=== PATIENT | female | born 1990 | race Hispanic/Latino ===

== ENCOUNTER 2018-04-13 06:06 | Observation (INO) | payer MEDICAID, OTHER ==
[~2018-04-13] VITALS: Ht 154.9 cm; Wt 68.5 kg
[2018-04-13 07:13] LABS: APPEARANCE,URINE CLEAR (CLEAR); BILIRUBIN,URINE NEGATIVE (NEGATIVE); COLOR,URINE YELLOW (YELLOW); GLUCOSE, URINE (UA) NEGATIVE (NEGATIVE); KETONES,URINE NEGATIVE (NEGATIVE); LEUKOCYTE ESTERASE ,URINE NEGATIVE (NEGATIVE); NITRATE,URINE NEGATIVE (NEGATIVE); OCCULT BLOOD,URINE NEGATIVE (NEGATIVE); PROTEIN,URINE NEGATIVE (NEGATIVE); UROBILINOGEN,URINE 0.2 mg/dL (0.2-1.0)
[2018-04-13] MEDS ORDERED: LACTATED RINGERS 1000ML IV SCH (12:15)
[2018-04-14] MEDS ORDERED: LIDOCAINE 2%-EPI 1:200,000 20 ML VIAL IJ ONE (02:44)
== END 2018-04-13 12:15 | disposition home or self-care (01) ==
LOC: EDH 06:06 → LDH 06:07
PROVIDERS: ADMIT Obstetrics & Gynecology; ATTEND Obstetrics & Gynecology
DX: O26.853 Spotting complicating pregnancy, third trimester (principal); Z3A.36 36 weeks gestation of pregnancy
CPT/HCPCS: 81003; 96360; 96361; G0378; J3490; J7120

== ENCOUNTER 2018-04-14 01:41 | Inpatient (IN) | payer OTHER ==
[~2018-04-14] VITALS: Ht 154.9 cm; Wt 68.5 kg
[2018-04-14] MEDS ORDERED: LACTATED RINGERS 1000ML 1,000 ML IV PRN (02:18)
[2018-04-14] MEDS ORDERED: CLINDAMYCIN 600 MG/D5% WATER 50 ML IV ONE (02:26)
[2018-04-14] MEDS ORDERED: LACTATED RINGERS 500 ML 500 ML IV PRN (02:30)
[2018-04-14] MEDS ORDERED: NALOXONE HCL 0.4 MG/1 ML ML IV PRN (02:30)
[2018-04-14] MEDS ORDERED: ROPIVACAINE 0.2%200ML EPIDURAL 200 ML EP SCH (02:30)
[2018-04-14] MEDS ORDERED: OXYTOCIN-LR 20 UNITS/1000 ML 1,000 ML IV SCH ×2 (02:30→04:00)
[2018-04-14] MEDS ORDERED: EPHEDRINE SULFATE 50 MG/ML AMPULE IVP PRN (02:30)
[2018-04-14] MEDS ORDERED: LACTATED RINGERS 1000ML 1,000 ML IV ONE ×2 (02:37→03:17)
[2018-04-14 02:40] LABS: HEMATOCRIT 33.8 % (36-48); MEAN CORPUSCULAR HEMOGLOBIN 26.3 pg (27.0-33.0); MEAN CORPUSCULAR HGB CONC 32.2 g/dL (32.0-36.0); MEAN CORPUSCULAR VOLUME 81.8 fL (79-99); PLATELET COUNT (AUTO) 282 K/uL (130-400); RED BLOOD CELL COUNT(AUTO) 4.13 MIL/uL (4.00-5.50); RED CELL DISTRIBUTION WIDTH 14.2 % (11.0-15.5); WHITE BLOOD COUNT (AUTO) 9.1 K/uL (4.8-10.8)
[2018-04-14 02:40] LABS: BACTERIA,URINE None Seen /HPF (None Seen); MUCUS,URINE Moderate LPF (None Seen); RBC,URINE 0-1 /HPF (0-1); SQUAMOUS EPITHELIAL CELL,UR Moderate /HPF (0-2); WBC,URINE None Seen /HPF (0-1)
[2018-04-14 02:41] LABS: APPEARANCE,URINE Cloudy (CLEAR); BILIRUBIN,URINE Negative (NEGATIVE); COLOR,URINE Yellow (YELLOW); GLUCOSE, URINE (UA) Negative (NEGATIVE); KETONES,URINE Negative (NEGATIVE); LEUKOCYTE ESTERASE ,URINE Negative (NEGATIVE); NITRATE,URINE Negative (NEGATIVE); OCCULT BLOOD,URINE Moderate (NEGATIVE); PH,URINE 7.5 (5.0-8.0); PROTEIN,URINE Trace (NEGATIVE)
[2018-04-14] MEDS ORDERED: OXYTOCIN 10 USP UNITS/ML ONE (03:17)
[2018-04-14] MEDS ORDERED: LIDOCAINE HCL 1% 20 ML VIAL ONE (03:20)
[2018-04-14] MEDS ORDERED: BENZOCAINE/LANOLIN/ALOE VERA 60 ML AEROSOL TP PRN (04:00)
[2018-04-14] MEDS ORDERED: ACETAMINOPHEN-CODEINE 300/30MG TAB PO PRN (04:00)
[2018-04-14] MEDS ORDERED: WITCH HAZEL 1 PAD TP PRN (04:00)
[2018-04-14] MEDS ORDERED: ACETAMINOPHEN 325 MG TAB PO PRN (04:00)
[2018-04-14] MEDS ORDERED: MEASLES/MUMPS/RUBELLA VACCINE, LIVE 0.5 ML/VIAL SQ PRN (04:00)
[2018-04-14] MEDS ORDERED: DIPH,PERTUSS(ACELL),TET VAC/PF 0.5 ML VIAL IM PRN (04:00)
[2018-04-14] MEDS ORDERED: LANOLIN 30GM OINTMENT TP PRN (04:00)
[2018-04-14 05:52] VITALS: BP 111/70
[2018-04-14] MEDS ORDERED: OXYTOCIN 10 USP UNITS/ML 20 UNIT in LACTATED RINGERS 1000ML 1,000 ML IV SCH (07:00)
--- NOTE | 2018-04-14 07:40 | NUR ---
PATIENT STABLE AND C/O PAIN OF 4 AND WAS MEDICATED WITH MOTRIN. BONDING WELL WITH BABY AND STATES BABY AND TOLERATING ACTIVITY WELL. PATIENT HAS IV #2 UP AND INFUSING WELL. PATIENT UP AT THIS TIME AND WAS ASSISTED BY MERLE VELASCO AND WAS ABLE TO VOID 350CC.
[2018-04-14 07:58] VITALS: BP 104/56
[2018-04-14] MEDS: DOCUSATE SODIUM 100 MG CAP PO SCH ×2 (08:06→21:59)
[2018-04-14] MEDS: IBUPROFEN 800 MG TAB PO PRN ×3 (08:07→22:00)
[2018-04-14] MEDS ORDERED: CLINDAMYCIN 600 MG/D5% WATER 50 ML IV SCH (09:00)
[2018-04-14 11:08] VITALS: BP 97/50
--- NOTE | 2018-04-14 13:00 | NUR ---
PATIENT SEEN BY DR. WRIGHT AND INFORMED PATIENT OF DISCHARGE IN A.M. ONCE BABY IS DISCHARGED
[2018-04-14 15:52] VITALS: BP 115/63
--- NOTE | 2018-04-14 16:00 | NUR ---
PIV REMOVED AND IV SITE WNL. PATIENT DENIES PAIN AND DID NOT WISH TO GET MOTRIN AT THIS TIME.
--- NOTE | 2018-04-14 19:10 | NUR ---
REPORT GIVEN TO YOVANNY BETANCOURT AND PATIENT CARE TRANSFERED AT THIS TIME.
[2018-04-14 19:36] VITALS: BP 110/67
[2018-04-14 23:23] VITALS: BP 106/63
[2018-04-15 03:15] VITALS: BP 95/53
[2018-04-15 07:02] LABS: HEMATOCRIT 28.4 % (36-48); MEAN CORPUSCULAR HEMOGLOBIN 26.5 pg (27.0-33.0); MEAN CORPUSCULAR HGB CONC 32.3 g/dL (32.0-36.0); PLATELET COUNT (AUTO) 224 K/uL (130-400); RED BLOOD CELL COUNT(AUTO) 3.47 MIL/uL (4.00-5.50); RED CELL DISTRIBUTION WIDTH 14.5 % (11.0-15.5); WHITE BLOOD COUNT (AUTO) 7.3 K/uL (4.8-10.8)
[2018-04-15 07:24] VITALS: BP 120/76
[2018-04-15 07:25] LABS: HEPATITIS Bs ANTIGEN SCREEN P Negative (Negative)
--- NOTE | 2018-04-15 07:50 | NUR ---
VERBALIZES HAVING A BM ON PREVIOUS NIGHT AND DENIES ANY PAIN AT THIS TIME. INFORMED PATIENT SHE COULD HAVE MOTRIN FOR GENERALIZED BODYACHES FROM DELIVERY AND AGREED TO TAKE SOME MOTRIN WITH A.M. MEDS.
[2018-04-15] MEDS: DOCUSATE SODIUM 100 MG CAP PO SCH ×2 (09:15→20:18)
[2018-04-15] MEDS: IBUPROFEN 800 MG TAB PO PRN ×2 (09:16→18:05)
--- NOTE | 2018-04-15 10:45 | NUR ---
DR. MULLINS ROUNDED AND PATIENT INDICATED BABY NOT GOING HOME DUE TO UNKNOWN GBS AND PATIENT WANTED TO STAY TO [facility] . PATIENT WAS INFORMED SHE COULD STAY UNTIL A.M. AND THEN BE DISCHARGED TO HOME.
[2018-04-15 11:25] VITALS: BP 109/70
--- NOTE | 2018-04-15 12:00 | NUR ---
DENIES HAVING ANY PAIN AND IS SUCCESSFULLY BE ABLE TO BREASTFEED BABY. PATIENT AND BABY STABLE.
[2018-04-15 15:39] VITALS: BP 107/60
--- NOTE | 2018-04-15 16:00 | NUR ---
PAIN MANAGEMENT ASSESSMENT DONE AND PATIENT DENIES ANY PAIN. DENIES ANY ACHES OR NEEDING MOTRIN.
[2018-04-15 19:35] VITALS: BP 111/76
[2018-04-15 23:26] VITALS: BP 105/63
--- NOTE | 2018-04-15 23:41 | NUR ---
report given to Suzy Klein rn, for continuation of care.
[2018-04-16 03:17] VITALS: BP 90/56
[2018-04-16] MEDS: IBUPROFEN 800 MG TAB PO PRN (06:14)
[2018-04-16 07:26] VITALS: BP 111/65
--- NOTE | 2018-04-16 07:30 | NUR ---
PATIENT IS STABLE AND STATES HAVING PAIN OF 2 ON SCALE OF 0 TO 10. WAS MEDICATED WITH MOTRIN AT 0614 AND WILL MEDICATE WITH PLAIN TYLENOL.
[2018-04-16] MEDS: DOCUSATE SODIUM 100 MG CAP PO SCH (08:36)
--- NOTE | 2018-04-16 10:15 | NUR ---
DR. COOPER ROUNDED AND DISCHARGED PATIENT TO HOME. PATIENT STABLE.
--- NOTE | 2018-04-16 11:15 | NUR ---
PATIENT WAS GIVEN DISCHARGE INSTRUCTIONS AND SCRIPT GIVEN FOR MOTRIN. PATIENT DENIES PAIN AT THIS TIME AND VERBALIZED UNDERSTANDING INSTRUCTIONS GIVEN.
--- NOTE | 2018-04-16 11:15 | NUR ---
PATIENT WAS TAKEN VIA W/C TO [facility]ABY IN [place]. PATIENT IS STABLE AND DENIES PAIN AND WAS DISCHARGED TO [facility]. Addendum: 04/16/18 at 1429 by GRACE MIRANDA RN PATIENT WAS TAKEN TO [facility] AT 1305 AND WAS GIVEN INSTRUCTIONS AT 1115. BABY WAS DISCHARGED AT 1300.
[2018-04-16 11:22] VITALS: BP 112/71
== END 2018-04-16 13:05 | disposition home or self-care (01) | DRG 807 ==
LOC: EDH 01:41 → LDH 01:42 → OBSVTOIN 01:42 → WSH 05:43
PROVIDERS: ADMIT Obstetrics & Gynecology; ATTEND Obstetrics & Gynecology
PROC: 10E0XZZ Delivery of Products of Conception, External Approach (ICD-10-PCS; principal; 2018-04-14)
PROC: 10907ZC Drainage of Amniotic Fluid, Therapeutic from Products of Conception, Via Natural or Artificial Opening (ICD-10-PCS; 2018-04-14)
PROC: 0HQ9XZZ Repair Perineum Skin, External Approach (ICD-10-PCS; 2018-04-14)
PROC: 3E0234Z Introduction of Serum, Toxoid and Vaccine into Muscle, Percutaneous Approach (ICD-10-PCS; 2018-04-14)
PROC: 3E0134Z Introduction of Serum, Toxoid and Vaccine into Subcutaneous Tissue, Percutaneous Approach (ICD-10-PCS; 2018-04-14)
DX: O71.5 Other obstetric injury to pelvic organs (principal); Z37.0 Single live birth; O70.0 First degree perineal laceration during delivery; Z3A.37 37 weeks gestation of pregnancy; Z23 Encounter for immunization
CPT/HCPCS: 36415; 81001; 85027; 86592; 86850; 86900; 86901; 87340; A4351; G0378; J2590; J3490; J7120

== ENCOUNTER 2019-06-28 10:07 | Emergency (ER) | payer MEDICAID, OTHER ==
[2019-06-28 11:09] LABS: APPEARANCE,URINE Clear (CLEAR); BILIRUBIN,URINE Negative (NEGATIVE); COLOR,URINE Yellow (YELLOW); GLUCOSE, URINE (UA) Negative (NEGATIVE); KETONES,URINE Negative (NEGATIVE); LEUKOCYTE ESTERASE ,URINE Trace (NEGATIVE); NITRATE,URINE Negative (NEGATIVE); OCCULT BLOOD,URINE Negative (NEGATIVE); PH,URINE 5.5 (5.0-8.0); PROTEIN,URINE Negative (NEGATIVE)
[2019-06-28 11:25] LABS: HCG,QUAL RESULT NEGATIVE (NEGATIVE)
[2019-06-28 11:27] LABS: BACTERIA,URINE Rare /HPF (None Seen); RBC,URINE 0-1 /HPF (0-1); SQUAMOUS EPITHELIAL CELL,UR Rare /HPF (0-2); WBC,URINE 0-1 /HPF (0-1)
[2019-06-28] MEDS ORDERED: KETOROLAC TROMETHAMINE 30MG/ML ONE (11:27)
== END 2019-06-28 11:40 | disposition home or self-care (01) ==
LOC: EDH 10:07
DX: M54.5 Low back pain (principal); Z88.0 Allergy status to penicillin
CPT/HCPCS: 81001; 81025; 96372; 99283; J1885

== ENCOUNTER 2024-03-25 10:07 | Inpatient (IN) | payer BC, OTHER ==
[~2024-03-25] VITALS: Ht 154.9 cm; Wt 58.2 kg
[2024-03-25 10:28] LABS: BASOPHILS # (AUTO) 0.01 K/uL (0.00-0.20); BASOPHILS % (AUTO) 0.1 % (0.0-5.0); EOSINOPHILS # (AUTO) 0.04 K/uL (0.00-0.70); EOSINOPHILS % (AUTO) 0.5 % (0.0-8.0); HEMATOCRIT 39.3 % (36-48); IMMATURE GRANULOCYTE ABSOLUTE 0.04 K/uL (0-1); LYMPHOCYTES # (AUTO) 1.5 K/uL (1.0-4.8); LYMPHOCYTES % (AUTO) 17.3 % (21.0-51.0); MEAN CORPUSCULAR HEMOGLOBIN 29.9 pg (27.0-33.0); MEAN CORPUSCULAR HGB CONC 34.1 g/dL (32.0-36.0); MEAN CORPUSCULAR VOLUME 87.7 fL (79-99); MONOCYTES # (AUTO) 0.4 K/uL (0.1-1.0); MONOCYTES % (AUTO) 4.2 % (3.0-13.0); NEUTROPHILS # (AUTO) 6.5 K/uL (1.8-7.7); NEUTROPHILS % (AUTO) 77.4 % (40.0-77.0); PLATELET COUNT (AUTO) 305 K/uL (130-400); RED BLOOD CELL COUNT(AUTO) 4.48 MIL/uL (4.00-5.50); RED CELL DISTRIBUTION WIDTH 12.3 % (11.0-15.5); WHITE BLOOD COUNT (AUTO) 8.4 K/uL (4.8-10.8)
[2024-03-25 10:39] LABS: CREATININE 0.6 mg/dL (0.5-1.0); POTASSIUM 4.4 mmol/L (3.5-5.1)
[2024-03-25 10:43] LABS: BILIRUBIN,TOTAL 0.5 mg/dL (0.2-1.0); TOTAL PROTEIN, SERUM 7.5 g/dL (6.0-8.3)
[2024-03-25 10:55] LABS: HCG,QUALITATIVE URINE NEGATIVE (NEGATIVE)
[2024-03-25 11:00] LABS: APPEARANCE,URINE CLEAR (CLEAR); BILIRUBIN,URINE NEGATIVE (NEGATIVE); COLOR,URINE COLORLESS (YELLOW); GLUCOSE, URINE (UA) NEGATIVE (NEGATIVE); KETONES,URINE NEGATIVE (NEGATIVE); LEUKOCYTE ESTERASE ,URINE NEGATIVE Leu/uL (NEGATIVE); NITRATE,URINE NEGATIVE (NEGATIVE); OCCULT BLOOD,URINE NEGATIVE (NEGATIVE); PH,URINE 7.5 (5.0-8.0); PROTEIN,URINE NEGATIVE (NEGATIVE); RBC,URINE 0-1 /HPF (0-1); SQUAMOUS EPITHELIAL CELL,UR RARE /HPF (0-2); UROBILINOGEN,URINE 0.2 mg/dL (0.2-1.0); WBC,URINE 0-1 /HPF (0-1)
[2024-03-25] MEDS ORDERED: IOHEXOL-350 75 ML VIAL IV ONE (11:44)
--- NOTE | 2024-03-25 12:35 | HMCIMG ---
CT ABDOMEN/PELVIS W/CONTRAST HISTORY: RUQ pain TECHNIQUE: CT ABDOMEN/PELVIS W/CONTRAST 75 cc Omnipaque contrast was used. Oral contrast was not given. Coronal and sagittal reformats were obtained. CT was performed with one or more of the following dose reduction techniques: Automated exposure control, adjustment of the mA and/or kV according to the patient's size, or use of the iterative reconstruction technique. Comparison: None. FINDINGS: No pulmonary consolidation or pleural effusion is seen. Unremarkable liver The spleen, pancreas, and adrenal glands are within normal limits. No hydronephrosis. The urinary bladder is partially distended. Retroverted retroflexed uterus with IUD in place. Fluid-filled loops of small bowel suggesting enteritis in the proper clinical setting. No bowel obstruction is seen. Mildly distended gallbladder with gallstones and questionable wall thickening. Correlate with ultrasound. Appendix is normal in caliber. Visualized aorta is normal in caliber. No acute osseous findings. IMPRESSION: 1. Fluid-filled loops of small bowel suggesting enteritis in the proper clinical setting. No bowel obstruction is seen. 2. Mildly distended gallbladder with gallstones and questionable wall thickening. Correlate with ultrasound.
--- NOTE | 2024-03-25 14:28 | HMCIMG ---
US ABDOMINAL RUQ\E\LTD HISTORY: RUQ Pain TECHNIQUE: US ABDOMINAL RUQ\E\LTD. FINDINGS: LIVER: The liver demonstrates normal echogenicity without focal lesions. GALLBLADDER: Mildly distended gallbladder with gallstones, trace of pericholecystic fluid and mild gallbladder wall thickening which may may represent acute cholecystitis in the proper clinical setting. CBD: Measures up to 0.3cm. PANCREAS: The visualized pancreas appears within normal limits. RIGHT KIDNEY: measures 9.8cm in length. No hydronephrosis or calculi. IMPRESSION: Mildly distended gallbladder with gallstones, trace of pericholecystic fluid and mild gallbladder wall thickening which may may represent acute cholecystitis in the proper clinical setting.
--- NOTE | 2024-03-25 14:42 | ERN ---
General Chief Complaint: Abdominal Pain Stated Complaint: EPIGASTRIC PAIN X1 WEEK Time Seen by MD: 10:12 Time Seen by Midlevel: 10:12 Source: patient History of Present Illness Initial Comments 33-year-old female who presents to the ED due to abdominal pain off and on for one week. States she is unable to eat due to the increasing pain. Patient reports nausea, chills, diarrhea, but denies any vomiting or further associated symptoms. Reports history of gallstones but denies any other significant past medical history. Allergies: Coded Allergies: Penicillins (Verified Allergy, 01/08/12) Home Meds No Active Prescriptions or Reported Meds Past Medical History Past Medical History: No Pertinent History Past Surgical History: None ROS Dictation Constitutional: Positive for chills Negative for fever, and weight loss Eyes: Negative for injury, pain,redness, and discharge ENT: Negative for injury,pain or swelling Cardiovascular: Negative for chest pain, palpitations, and edema Respiratory: Negative for shortness of breath, cough, and wheezing, Abdomen/GI: Positive for nausea, abdominal pain, diarrhea Negative for vomiting, and constipation Back: Negative for injury and pain : Negative for painful urination, bleeding or discharge MS/Extremity: Negative for injury and deformity Skin: Negative for rash, and discoloration Neuro: Negative for headache, weakness, numbness, tingling, and seizure Psych: Negative for suicide ideation, homicidal ideation, and hallucinations Physical Exam Physical Exam Dictation General: awake, alert, no acute distress Head/Face: Normocephalic, atraumatic Eyes: normal conjunctiva ENT: oral cavity clear, oral mucosa moist Cardiovascular: RRR, normal S1/S2 Respiratory: CTAB, no respiratory distress, no rales or wheezes Abdomen: Soft, right upper quadrant tenderness, non-distended, no guarding or rebound. Skin: Warm, dry, normal turgor, no rash MS/Extremity: Pulses equal, no cyanosis, neurovascular intact, FROM Neuro: COAx4, GCS 15, normal gait Psych: Normal behavior, mood, and affect normal Results Laboratory and Microbiology Lab and Micro Result Laboratory Tests Test 03/25/24 10:22 03/25/24 10:25 White Blood Count 8.4 K/uL (4.8-10.8) Red Blood Count 4.48 MIL/uL (4.00-5.50) Hemoglobin 13.4 g/dL (12.0-16.0) Hematocrit 39.3 % (36-48) Mean Corpuscular Volume 87.7 fL (79-99) Mean Corpuscular Hemoglobin 29.9 pg (27.0-33.0) Mean Corpuscular Hemoglobin Concent 34.1 g/dL (32.0-36.0) Red Cell Distribution Width 12.3 % (11.0-15.5) Platelet Count 305 K/uL (130-400) Mean Platelet Volume 9.9 fL (7.5-10.5) Immature Granulocyte % (Auto) 0.5 % (0-1) Neutrophils (%) (Auto) 77.4 % (40.0-77.0) H Lymphocytes (%) (Auto) 17.3 % (21.0-51.0) L Monocytes (%) (Auto) 4.2 % (3.0-13.0) Eosinophils (%) (Auto) 0.5 % (0.0-8.0) Basophils (%) (Auto) 0.1 % (0.0-5.0) Neutrophils # (Auto) 6.5 K/uL (1.8-7.7) Lymphocytes # (Auto) 1.5 K/uL (1.0-4.8) Monocytes # (Auto) 0.4 K/uL (0.1-1.0) Eosinophils # (Auto) 0.04 K/uL (0.00-0.70) Basophils # (Auto) 0.01 K/uL (0.00-0.20) Absolute Immature Granulocyte (auto 0.04 K/uL (0-1) Nucleated Red Blood Cells 0.0 % (0.0-0.19) Sodium Level 137 mmol/L (136-145) Potassium Level 4.4 mmol/L (3.5-5.1) Chloride Level 104 mmol/L (101-111) Carbon Dioxide Level 29 mmol/L (21-32) Blood Urea Nitrogen 8 mg/dL (7-18) Creatinine 0.6 mg/dL (0.5-1.0) Glomerular Filtration Rate Calc 121 mL/min (>90) Random Glucose 95 mg/dL (70-105) Total Calcium 9.0 mg/dL (8.5-10.1) Total Bilirubin 0.5 mg/dL (0.2-1.0) Aspartate Amino Transf (AST/SGOT) 15 U/L (10-37) Alanine Aminotransferase (ALT/SGPT) 24 U/L (12-78) Alkaline Phosphatase 88 U/L (50-136) Total Protein 7.5 g/dL (6.0-8.3) Albumin 4.0 g/dL (3.5-5.0) Lipase 39 U/L (16-77) Urine Color COLORLESS (YELLOW) Urine Appearance CLEAR (CLEAR) Urine pH 7.5 (5.0-8.0) Urine Specific [place] 1.010 (1.001-1.031) Urine Protein NEGATIVE mg/dL (NEGATIVE) Urine Glucose (UA) NEGATIVE mg/dL (NEGATIVE) Urine Ketones NEGATIVE mg/dL (NEGATIVE) Urine Occult Blood NEGATIVE (NEGATIVE) Urine Nitrate NEGATIVE (NEGATIVE) Urine Bilirubin NEGATIVE mg/dL (NEGATIVE) Urine Urobilinogen 0.2 mg/dL (0.2-1.0) Urine Leukocyte Esterase NEGATIVE Sudeep/uL Urine RBC 0-1 /HPF (0-1) Urine WBC 0-1 /HPF (0-1) Urine Squamous Epithelial Cells RARE /HPF (0-2) Urine Bacteria None /HPF (None Seen) Urine HCG, Qualitative NEGATIVE (NEGATIVE) Labs Reviewed?: Yes EKG/XRAY/US/CT/MRI Ultrasound Comment REASON: RUQ Pain ORDERING PHYSICIAN: CAIO DOWD PROCEDURE: ABDRUQLTD - US ABDOMINAL RUQ\LTD US ABDOMINAL RUQ\E\LTD HISTORY: RUQ Pain TECHNIQUE: US ABDOMINAL RUQ\E\LTD. FINDINGS: LIVER: The liver demonstrates normal echogenicity without focal lesions. GALLBLADDER: Mildly distended gallbladder with gallstones, trace of pericholecystic fluid and mild gallbladder wall thickening which may may represent acute cholecystitis in the proper clinical setting. CBD: Measures up to 0.3cm. PANCREAS: The visualized pancreas appears within normal limits. RIGHT KIDNEY: measures 9.8cm in length. No hydronephrosis or calculi. IMPRESSION: Mildly distended gallbladder with gallstones, trace of pericholecystic fluid and mild gallbladder wall thickening which may may represent acute cholecystitis in the proper clinical setting. CT Scan Comment REASON: RUQ pain ORDERING PHYSICIAN: CAIO DOWD PROCEDURE: ABD PEL W - CT ABDOMEN/PELVIS W/CONTRAST CT ABDOMEN/PELVIS W/CONTRAST HISTORY: RUQ pain TECHNIQUE: CT ABDOMEN/PELVIS W/CONTRAST 75 cc Omnipaque contrast was used. Oral contrast was not given. Coronal and sagittal reformats were obtained. CT was performed with one or more of the following dose reduction techniques: Automated exposure control, adjustment of the mA and/or kV according to the patient's size, or use of the iterative reconstruction technique. Comparison: None. FINDINGS: No pulmonary consolidation or pleural effusion is seen. Unremarkable liver The spleen, pancreas, and adrenal glands are within normal limits. No hydronephrosis. The urinary bladder is partially distended. Retroverted retroflexed uterus with IUD in place. Fluid-filled loops of small bowel suggesting enteritis in the proper clinical setting. No bowel obstruction is seen. Mildly distended gallbladder with gallstones and questionable wall thickening. Correlate with ultrasound. Appendix is normal in caliber. Visualized aorta is normal in caliber. No acute osseous findings. IMPRESSION: 1. Fluid-filled loops of small bowel suggesting enteritis in the proper clinical setting. No bowel obstruction is seen. 2. Mildly distended gallbladder with gallstones and questionable wall thickening. Correlate with ultrasound. MDM MDM: Differential diagnosis: Cholelithiasis, cholecystitis, biliary colic Rationale: 33-year-old female who presents to the ED due to abdominal pain off and on for one week. States she is unable to eat due to the increasing pain. Patient reports nausea, chills, diarrhea, but denies any vomiting or further associated symptoms. Reports history of gallstones but denies any other significant past medical history. Labs obtained are nonspecific. CT abdomen and pelvis indicates fluid-filled loops in the small bowel suggesting enteritis, mildly distended gallbladder with gallstones. Right upper quadrant ultrasound indicates mildly distended gallbladder with gallstones, trace of pericholecystic fluid and gallbladder wall thickening. Case discussed with general surgeon Dr. Bailey who stated he would evaluate the patient. Patient admitted to hospitalist who accepted admission. Patient declined any pain medication while in the ED. Patient was educated on findings, diagnosis, and admission. Patient verbalized understanding and agreed with admission. Previous outside records reviewed: Old ER visits. Risk of complication and/or morbidity or mortality of patient management: None Medications-Per medication reconciliation Need for hospitalization: Patient does meet criteria for hospitalization. Need for emergency major/minor surgery: No There are no social concerns with this patient. Prescription drug management Prescriptions will include symptomatic care Patient's prior external medical records from other ER visits were reviewed by me as indicated. Prior testing and results from previous visits were reviewed. Prior tests were taken into account with medical decision making and resource utilization, independent historian/historians were used to obtain complete medical history. I independently interpreted the test that were performed, results were reviewed by me and considered findings on radiology if ordered. Medical management and examination interpretation discussions were had by me with other qualified healthcare professionals as indicated for the patient's care. ED Course Orders Procedure Category Date Status Time Cbc With Differential LAB 03/25/24 Complete 10:12 Comprehensive LAB 03/25/24 Complete Metabolic Panel 10:12 Urinalysis LAB 03/25/24 Complete W/Microscopic 10:12 ,Urine Test LAB 03/25/24 Complete 10:12 Lipase LAB 03/25/24 Complete 10:12 Ct Abdomen/Pelvis CT 03/25/24 Resulted W/Contrast 11:11 Iohexol (Omnipaque) PHA 03/25/24 Complete 11:44 Us Abdominal Ruq\Ltd US 03/25/24 Resulted 12:46 Levofloxacin 500 PHA 03/25/24 Complete Mg/D5w 100 Ml 14:02 Current Medications Medications (Trade) Dose Ordered Sig/Amando Route PRN Reason Start Time Stop Time Status Last Admin Dose Admin Iohexol (Omnipaque) 75 ml STK-MED ONCE IV 03/25/24 11:44 03/25/24 11:45 DC Levofloxacin/ Dextrose 100 ml @ 100 mls/hr Q24H STAT IV 03/25/24 14:02 03/25/24 15:01 DC 03/25/24 15:34 Vital Signs Date Time Temp Pulse Resp B/P (MAP) Pulse Ox O2 Delivery O2 Flow Rate FiO2 03/25/24 13:00 98.2 62 18 125/70 99 Room Air* 0 21 03/25/24 11:00 98.2 70 16 122/75 99 Room Air* 0 21 03/25/24 10:08 98.2 72 14 124/76 99 Room Air 0 DX & DISP Disposition: Inpatient Decision to Admit Date: Mar 25, 2024 Departure Impression: Primary Impression: Acute cholecystitis Additional Impression: Biliary colic Condition: Stable Scripts No Active Prescriptions or Reported Meds Referrals: SELF,REFERRAL (PCP) I performed this substantive portion of this visit. I have reviewed and personally made and approve the management plan that is documented in the note by myself or the CHERYL. I acknowledge full responsibility for the patient's management plan. CAIO DOWD Mar 25, 2024 14:42 GIOVANNI العلي MD Mar 26, 2024 18:04
[2024-03-25] MEDS ORDERED: acetaMINOPHEN 325 MG TAB PO PRN (15:00)
[2024-03-25] MEDS ORDERED: PoTASSium chloRIDE 20MEQ/100ML 100 ML IV PRN (15:00)
[2024-03-25] MEDS ORDERED: ondanSETRON 4MG INJ IVP PRN (15:00)
[2024-03-25] MEDS ORDERED: ketOROlac 15MG/ML VIAL (15MG/ML) IV PRN (15:00)
--- NOTE | 2024-03-25 15:08 | HP ---
[facility] HISTORY AND PHYSICAL Date of Service: Mar 25, 2024 Time of Service: 14:51 HISTORY OF PRESENT ILLNESS: [ ] admission date: 03/25/24 PCP: self referral chief complaints: abd pain epigastric region This is a 33-year-old male that presents in ED with chief complaints of abdominal pain. onset: one week; location epigastric region, pain come in wave however last night was consistent: does not radiate, aggravating factors: none, alleviating factors: none: associated symptoms: chill, night sweats, nauseated and diarrhea. Denies chest pain back pain, flank pain. Patient reports having similar symptoms in the past: was seen in ER [facility]. Imaging; CT abd/pelvis Fluid-filled loops of small bowel suggesting enteritis in the proper clinical setting. No bowel obstruction is seen. 2. Mildly distended gallbladder with gallstones and questionable wall thickening. Correlate with ultrasound. US Abd: Mildly distended gallbladder with gallstones, trace of pericholecystic fluid and mild gallbladder wall thickening which may may represent acute cholecystitis in the proper clinical setting. The patient seen in ED 9: the patient has epigastric pain. surgeon will see the patient later today: will get a HIDA scan. REVIEW OF SYSTEMS a 14 Point ROS was obtained all relevant positives were documented otherwise ROS negative PAST MEDICAL HISTORY: [ ] no pertinent hx. PAST SURGICAL HISTORY: [ ] none PAST SOCIAL HISTORY: [ ] denies smoking tobacco products Drink ETOH on occasionally FAMILY HISTORY: [ ]noncontributory Coded Allergies: Penicillins (Verified Allergy, 01/08/12) PHYSICAL EXAM GENERAL APPEARANCE: The patient is awake, alert, and oriented, in no acute cardiopulmonary distress. NEUROLOGICAL: Cranial nerves II-XII grossly intact. Motor is 5/5 in bilateral upper and lower extremities proximal to distal. No sensory deficits. HEENT: Face is symmetric. Pupils are equal and reactive. Extraocular movements are intact. NECK: Supple. No JVD. No thyromegaly. No submental, submandibular, pre- /postauricular, occipital or supraclavicular lymphadenopathy. CHEST: Normal chest expansion. No Telemetry. LUNGS: Absence of any rales, rhonchi or any wheezing. CARDIOVASCULAR: Regular. S1 and S2 normal. No appreciable rubs, murmurs or gallops. ABDOMEN: Soft, nontender, and nondistended. There is no rebound, voluntary guarding, or rigidity. : Deferred. No Gillis. EXTREMITIES: Non-edematous and not cyanotic. No clubbing. Good capillary refill. SKIN: No skin breakdown. Vital Sign (Last 24 Hours) 03/25/24 11:00 Temp 98.2 Pulse 70 Resp 16 B/P (MAP) 122/75 Pulse Ox 99 O2 Delivery Room Air* O2 Flow Rate 0 FiO2 21 LABS: Laboratory: Test 03/25/24 10:25 03/25/24 10:22 Range/Units Urine Color COLORLESS YELLOW Urine Appearance CLEAR CLEAR Urine pH 7.5 5.0-8.0 Urine Specific [place] 1.010 1.001-1.031 Urine Protein NEGATIVE NEGATIVE mg/dL Urine Glucose (UA) NEGATIVE NEGATIVE mg/dL Urine Ketones NEGATIVE NEGATIVE mg/dL Urine Occult Blood NEGATIVE NEGATIVE Urine Nitrate NEGATIVE NEGATIVE Urine Bilirubin NEGATIVE NEGATIVE mg/dL Urine Urobilinogen 0.2 0.2-1.0 mg/dL Urine Leukocyte Esterase NEGATIVE NEGATIVE Sudeep/uL Urine RBC 0-1 0-1 /HPF Urine WBC 0-1 0-1 /HPF Urine Squamous Epithelial Cells RARE 0-2 /HPF Urine Bacteria None None Seen /HPF Urine HCG, Qualitative NEGATIVE NEGATIVE White Blood Count 8.4 4.8-10.8 K/uL Red Blood Count 4.48 4.00-5.50 MIL/uL Hemoglobin 13.4 12.0-16.0 g/dL Hematocrit 39.3 36-48 % Mean Corpuscular Volume 87.7 79-99 fL Mean Corpuscular Hemoglobin 29.9 27.0-33.0 pg Mean Corpuscular Hemoglobin Concent 34.1 32.0-36.0 g/dL Red Cell Distribution Width 12.3 11.0-15.5 % Platelet Count 305 130-400 K/uL Mean Platelet Volume 9.9 7.5-10.5 fL Immature Granulocyte % (Auto) 0.5 0-1 % Neutrophils (%) (Auto) 77.4 H 40.0-77.0 % Lymphocytes (%) (Auto) 17.3 L 21.0-51.0 % Monocytes (%) (Auto) 4.2 3.0-13.0 % Eosinophils (%) (Auto) 0.5 0.0-8.0 % Basophils (%) (Auto) 0.1 0.0-5.0 % Neutrophils # (Auto) 6.5 1.8-7.7 K/uL Lymphocytes # (Auto) 1.5 1.0-4.8 K/uL Monocytes # (Auto) 0.4 0.1-1.0 K/uL Eosinophils # (Auto) 0.04 0.00-0.70 K/uL Basophils # (Auto) 0.01 0.00-0.20 K/uL Absolute Immature Granulocyte (auto 0.04 0-1 K/uL Nucleated Red Blood Cells 0.0 0.0-0.19 % Sodium Level 137 136-145 mmol/L Potassium Level 4.4 3.5-5.1 mmol/L Chloride Level 104 101-111 mmol/L Carbon Dioxide Level 29 21-32 mmol/L Blood Urea Nitrogen 8 7-18 mg/dL Creatinine 0.6 0.5-1.0 mg/dL Glomerular Filtration Rate Calc 121 >90 mL/min Random Glucose 95 70-105 mg/dL Total Calcium 9.0 8.5-10.1 mg/dL Total Bilirubin 0.5 0.2-1.0 mg/dL Aspartate Amino Transf (AST/SGOT) 15 10-37 U/L Alanine Aminotransferase (ALT/SGPT) 24 12-78 U/L Alkaline Phosphatase 88 50-136 U/L Total Protein 7.5 6.0-8.3 g/dL Albumin 4.0 3.5-5.0 g/dL Lipase 39 16-77 U/L Current Medications Medications (Trade) Dose Ordered Sig/Amando Route PRN Reason Start Time Stop Time Status Last Admin Dose Admin Levofloxacin/ Dextrose 100 ml @ 100 mls/hr Q24H STAT IV 03/25/24 14:02 03/25/24 15:01 DIAGNOSTICS / RADIOLOGY: [ ] REASON: RUQ pain ORDERING PHYSICIAN: CAIO DOWD PROCEDURE: ABD PEL W - CT ABDOMEN/PELVIS W/CONTRAST CT ABDOMEN/PELVIS W/CONTRAST HISTORY: RUQ pain TECHNIQUE: CT ABDOMEN/PELVIS W/CONTRAST 75 cc Omnipaque contrast was used. Oral contrast was not given. Coronal and sagittal reformats were obtained. CT was performed with one or more of the following dose reduction techniques: Automated exposure control, adjustment of the mA and/or kV according to the patient's size, or use of the iterative reconstruction technique. Comparison: None. FINDINGS: No pulmonary consolidation or pleural effusion is seen. Unremarkable liver The spleen, pancreas, and adrenal glands are within normal limits. No hydronephrosis. The urinary bladder is partially distended. Retroverted retroflexed uterus with IUD in place. Fluid-filled loops of small bowel suggesting enteritis in the proper clinical setting. No bowel obstruction is seen. Mildly distended gallbladder with gallstones and questionable wall thickening. Correlate with ultrasound. Appendix is normal in caliber. Visualized aorta is normal in caliber. No acute osseous findings. IMPRESSION: 1. Fluid-filled loops of small bowel suggesting enteritis in the proper clinical setting. No bowel obstruction is seen. 2. Mildly distended gallbladder with gallstones and questionable wall thickening. Correlate with ultrasound. REASON: RUQ Pain ORDERING PHYSICIAN: CAIO DOWD PROCEDURE: ABDRUQLTD - US ABDOMINAL RUQ\LTD US ABDOMINAL RUQ\E\LTD HISTORY: RUQ Pain TECHNIQUE: US ABDOMINAL RUQ\E\LTD. FINDINGS: LIVER: The liver demonstrates normal echogenicity without focal lesions. GALLBLADDER: Mildly distended gallbladder with gallstones, trace of pericholecystic fluid and mild gallbladder wall thickening which may may represent acute cholecystitis in the proper clinical setting. CBD: Measures up to 0.3cm. PANCREAS: The visualized pancreas appears within normal limits. RIGHT KIDNEY: measures 9.8cm in length. No hydronephrosis or calculi. IMPRESSION: Mildly distended gallbladder with gallstones, trace of pericholecystic fluid and mild gallbladder wall thickening which may may represent acute cholecystitis in the proper clinical setting. ASSESSMENT: acute cholecystitis POA intractable abd pain POA Mildly distended GB iwth gallstones: wall thickening allergy to PCN PLAN: [ ] admit Medical surgical floor Consult: general Surgeon: DR Daly Test: HIDA diet: NPO IVF's NS at 75 ml/hr Levaquin 500 mg IV daily Pain: Toradol 15 mg IV every 6 hrs replace electrolytes as needed basis as protocol labs in am: cbc,cmp, mag PRN: MEDICATIONS Tylenol 650 mg po every 4 hrs for fever Zofran 4 mg IV every 6 hrs for n/v Supportive measures: DVT ppx, GI ppx all questions answered time spent: > 35 min Supervising MD: Dr. Rahman c/d [facility]ING 1. Which of the following were discussed? Hospice Care - Yes / No Therapeutic options - Yes / No Advance Directives - Yes / No Other discussions - 2. Discussed with who? 3. Voluntary nature of this service was explained to the patient? Yes / No 4. Amount of time spent - 5. Reviewed by Physician? (if this service was performed by NPP) Yes / No ATTESTATION BY PHYSICIAN I have seen and examined the patient. I reviewed the documentation, medical decision making, and treatment plan as noted by the mid-level provider above. I agree with the findings and plan of care. Estelle Rahman MD, ELIZABETH NP Mar 25, 2024 15:08
[2024-03-25] MEDS: levoFLOXacin 500 MG/D5W 100 ML 100 ML IV STA (15:34)
[2024-03-25] MEDS: 0.9%NACL 1000ML 1,000 ML IV SCH (15:35)
[2024-03-25] MEDS: levoFLOXacin 500 MG/D5W 100 ML 100 ML IV SCH (16:05)
--- NOTE | 2024-03-25 17:50 | NUR ---
ADMISSION PT DENIES ANY PAIN AT THE MOMENT, PT VERBALIZED UNDERSTANDING OF NPO. PT DENIES ANY HOME MEDS, AND PAST MEDICAL HISTORY. BED AT LOWEST POSITION, CALL LIGHT AND PERSONAL BELONGING WITH IN REACH.
[2024-03-25 18:00] VITALS: BP 114/71; PULSE 72; RESP 18; TEMP 97.9
[2024-03-25 20:00] VITALS: O2SAT 100
[2024-03-25 20:30] VITALS: BP 108/73; PULSE 61; RESP 18; TEMP 97.9
[2024-03-25] MEDS: FAMOTIDINE 20MG VIAL IV SCH (21:24)
--- NOTE | 2024-03-25 21:58 | HMCIMG ---
HIDA scan INDICATION: acute choleecystitis . TECHNIQUE: Patient was administered 7 mCi of technetium 99m Choletec IV and dynamic images of the abdomen were obtained over 2 hours. FINDINGS: There is rapid and homogeneous uptake of radiopharmaceutical by the liver, which shows normal size and shape. There is no activity in the gallbladder up to 1 hour angelica consistent with acute cholecystitis. IMPRESSION: Findings consistent with acute cholecystitis.
[2024-03-26] VITALS (29 sets, daily range): BP systolic 96–123; BP diastolic 54–80; PULSE 52–78; RESP 15–18; TEMP 97.1–98.6; O2SAT 96–100
[2024-03-26] MEDS: BUPIvacaine/PF 0.25% 30ML VIAL IJ ONE
[2024-03-26 04:22] LABS: BASOPHILS # (AUTO) 0.03 K/uL (0.00-0.20); BASOPHILS % (AUTO) 0.4 % (0.0-5.0); EOSINOPHILS # (AUTO) 0.06 K/uL (0.00-0.70); EOSINOPHILS % (AUTO) 0.9 % (0.0-8.0); IMMATURE GRANULOCYTE ABSOLUTE 0.02 K/uL (0-1); LYMPHOCYTES # (AUTO) 1.9 K/uL (1.0-4.8); LYMPHOCYTES % (AUTO) 27.2 % (21.0-51.0); MEAN CORPUSCULAR HGB CONC 33.9 g/dL (32.0-36.0); MEAN CORPUSCULAR VOLUME 88.7 fL (79-99); MONOCYTES # (AUTO) 0.4 K/uL (0.1-1.0); MONOCYTES % (AUTO) 6.1 % (3.0-13.0); NEUTROPHILS # (AUTO) 4.5 K/uL (1.8-7.7); NEUTROPHILS % (AUTO) 65.1 % (40.0-77.0); PLATELET COUNT (AUTO) 274 K/uL (130-400); RED BLOOD CELL COUNT(AUTO) 4.06 MIL/uL (4.00-5.50); RED CELL DISTRIBUTION WIDTH 12.2 % (11.0-15.5); WHITE BLOOD COUNT (AUTO) 6.9 K/uL (4.8-10.8)
[2024-03-26 04:31] LABS: ALBUMIN 3.4 g/dL (3.5-5.0); BILIRUBIN,TOTAL 0.7 mg/dL (0.2-1.0); CREATININE 0.6 mg/dL (0.5-1.0); MAGNESIUM 1.8 mg/dL (1.80-2.40); POTASSIUM 3.3 mmol/L (3.5-5.1); TOTAL PROTEIN, SERUM 6.7 g/dL (6.0-8.3)
--- NOTE | 2024-03-26 11:03 | CONS ---
CONSULT NOTE: 33-year-old female with no significant past medical history that came last night with right upper quadrant pain. Ultrasound shows stones and HIDA scan shows acute cholecystitis. White count normal liver function tests normal. Patient went to [facility] a couple of weeks ago and was admitted for five days in the she was told that has stones but the left up to her if he want to have surgery. Patient went home and now had again this episode. Patient will be taken to the OR today. DELBERT LUGO MD Mar 26, 2024 11:03
--- NOTE | 2024-03-26 11:13 | PN ---
[facility] PROGRESS NOTE Date of Service: Mar 26, 2024 Time of Service: 11:08 SUBJECTIVE: [ ] admission date: 03/25/24 PCP: self referral chief complaints: abd pain epigastric region This is a 33-year-old male that presents in ED with chief complaints of abdominal pain. onset: one week; location epigastric region, pain come in wave however last night was consistent: does not radiate, aggravating factors: none, alleviating factors: none: associated symptoms: chill, night sweats, nauseated and diarrhea. Denies chest pain back pain, flank pain. Patient reports having similar symptoms in the past: [place] [facility] [place] patient seen and examined reviewed chart with DR Amaya. Patient was evaluated by surgeon we will schedule patient for lap elise today. I encouraged patient early ambulation and deep exercise postop verbalized understanding REVIEW OF SYSTEMS a 14 Point ROS was obtained all relevant positives were documented otherwise ROS negative PHYSICAL EXAM GENERAL APPEARANCE: The patient is awake, alert, and oriented, in no acute cardiopulmonary distress. NEUROLOGICAL: Cranial nerves II-XII grossly intact. Motor is 5/5 in bilateral upper and lower extremities proximal to distal. No sensory deficits. HEENT: Face is symmetric. Pupils are equal and reactive. Extraocular movements are intact. NECK: Supple. No JVD. No thyromegaly. No submental, submandibular, pre- /postauricular, occipital or supraclavicular lymphadenopathy. CHEST: Normal chest expansion. No Telemetry. LUNGS: Absence of any rales, rhonchi or any wheezing. CARDIOVASCULAR: Regular. S1 and S2 normal. No appreciable rubs, murmurs or gallops. ABDOMEN: Soft, nontender, and nondistended. There is no rebound, voluntary guarding, or rigidity. : Deferred. No Gillis. EXTREMITIES: Non-edematous and not cyanotic. No clubbing. Good capillary refill. SKIN: No skin breakdown. Vital Signs (last 8hr) Date Time Temp Pulse Resp B/P (MAP) Pulse Ox O2 Delivery O2 Flow Rate FiO2 03/26/24 07:46 98.2 70 18 99/54 99 Room Air 03/26/24 04:00 97.7 60 16 103/58 98 Room Air LABS: Laboratory: Test 03/26/24 03:49 03/25/24 10:25 03/25/24 10:22 Range/Units White Blood Count 6.9 4.8-10.8 K/uL Red Blood Count 4.06 4.00-5.50 MIL/uL Hemoglobin 12.2 12.0-16.0 g/dL Hematocrit 36.0 36-48 % Mean Corpuscular Volume 88.7 79-99 fL Mean Corpuscular Hemoglobin 30.0 27.0-33.0 pg Mean Corpuscular Hemoglobin Concent 33.9 32.0-36.0 g/dL Red Cell Distribution Width 12.2 11.0-15.5 % Platelet Count 274 130-400 K/uL Mean Platelet Volume 10.2 7.5-10.5 fL Immature Granulocyte % (Auto) 0.3 0-1 % Neutrophils (%) (Auto) 65.1 40.0-77.0 % Lymphocytes (%) (Auto) 27.2 21.0-51.0 % Monocytes (%) (Auto) 6.1 3.0-13.0 % Eosinophils (%) (Auto) 0.9 0.0-8.0 % Basophils (%) (Auto) 0.4 0.0-5.0 % Neutrophils # (Auto) 4.5 1.8-7.7 K/uL Lymphocytes # (Auto) 1.9 1.0-4.8 K/uL Monocytes # (Auto) 0.4 0.1-1.0 K/uL Eosinophils # (Auto) 0.06 0.00-0.70 K/uL Basophils # (Auto) 0.03 0.00-0.20 K/uL Absolute Immature Granulocyte (auto 0.02 0-1 K/uL Nucleated Red Blood Cells 0.0 0.0-0.19 % Sodium Level 140 136-145 mmol/L Potassium Level 3.3 L 3.5-5.1 mmol/L Chloride Level 105 101-111 mmol/L Carbon Dioxide Level 27 21-32 mmol/L Blood Urea Nitrogen 8 7-18 mg/dL Creatinine 0.6 0.5-1.0 mg/dL Glomerular Filtration Rate Calc 121 >90 mL/min Random Glucose 81 70-105 mg/dL Total Calcium 8.5 8.5-10.1 mg/dL Magnesium Level 1.80 1.80-2.40 mg/dL Total Bilirubin 0.7 # 0.2-1.0 mg/dL Aspartate Amino Transf (AST/SGOT) 14 10-37 U/L Alanine Aminotransferase (ALT/SGPT) 23 12-78 U/L Alkaline Phosphatase 85 50-136 U/L C-Reactive Protein, Quantitative 6.30 H 0.5-3.0 mg/L Total Protein 6.7 6.0-8.3 g/dL Albumin 3.4 L 3.5-5.0 g/dL Urine Color COLORLESS YELLOW Urine Appearance CLEAR CLEAR Urine pH 7.5 5.0-8.0 Urine Specific Leivasy 1.010 1.001-1.031 Urine Protein NEGATIVE NEGATIVE mg/dL Urine Glucose (UA) NEGATIVE NEGATIVE mg/dL Urine Ketones NEGATIVE NEGATIVE mg/dL Urine Occult Blood NEGATIVE NEGATIVE Urine Nitrate NEGATIVE NEGATIVE Urine Bilirubin NEGATIVE NEGATIVE mg/dL Urine Urobilinogen 0.2 0.2-1.0 mg/dL Urine Leukocyte Esterase NEGATIVE NEGATIVE Sudeep/uL Urine RBC 0-1 0-1 /HPF Urine WBC 0-1 0-1 /HPF Urine Squamous Epithelial Cells RARE 0-2 /HPF Urine Bacteria None None Seen /HPF Urine HCG, Qualitative NEGATIVE NEGATIVE Lipase 39 16-77 U/L Current Medications Medications (Trade) Dose Ordered Sig/Amando Route PRN Reason Start Time Stop Time Status Last Admin Dose Admin Acetaminophen (TYLenol 325MG TAB) 650 mg Q4H PRN PO TEMPERATURE GREATER THAN 101.5 03/25/24 15:00 04/24/24 14:59 Famotidine (Pepcid 20mg Vial) 20 mg BID IV 03/25/24 21:00 04/24/24 20:59 03/26/24 09:05 20 MG Ketorolac Tromethamine (toRADol) 15 mg Q6H PRN IV MODERATE PAIN (4-6) 03/25/24 15:00 03/30/24 14:59 Levofloxacin/ Dextrose 100 ml @ 100 mls/hr Q24H IV 03/25/24 16:00 04/04/24 15:59 03/25/24 16:05 100 MLS/HR Levofloxacin/ Dextrose 100 ml @ 100 mls/hr Q24H STAT IV 03/25/24 14:02 03/25/24 15:01 DC 03/25/24 15:34 100 MLS/HR Magnesium Sulfate 50 ml @ 0 mls/hr PROTOCOL PRN IV low mag level 03/25/24 15:00 04/24/24 14:59 Ondansetron HCl (zoFRAN 4MG INJ) 4 mg Q6H PRN IVP NAUSEA/VOMITING 03/25/24 15:00 04/24/24 14:59 Potassium Chloride 100 ml @ 50 mls/hr AD PRN IV POTASSIUM PROTOCOL 03/25/24 15:00 04/24/24 14:59 Sodium Chloride 1,000 ml @ 75 mls/hr [id number] IV 03/25/24 15:00 04/24/24 14:59 03/25/24 15:35 75 MLS/HR DIAGNOSTICS / RADIOLOGY: [ ] ASSESSMENT: acute cholecystitis POA intractable abd pain POA Mildly distended GB iwth gallstones: wall thickening allergy to PCN PLAN: [ ] admit Medical surgical floor Consult: general Surgeon: DR Daly scheduled patient for Lap elise today Test: HIDA noted finding consistent with acute cholecystitis diet: NPO IVF's NS at 75 ml/hr Levaquin 500 mg IV daily Encouraged early ambulation and deep breathing exercising will order IS. Pain: Toradol 15 mg IV every 6 hrs replace electrolytes as needed basis as protocol labs in am: cbc,cmp, mag PRN: MEDICATIONS Tylenol 650 mg po every 4 hrs for fever Zofran 4 mg IV every 6 hrs for n/v Supportive measures: DVT ppx, GI ppx all questions answered Supervising MD: Dr. Amaya c/d ATTESTATION BY PHYSICIAN I have seen and examined the patient. I reviewed the documentation, medical decision making, and treatment plan as noted by the mid-level provider above. I agree with the findings and plan of care. DELTA AMAYA MD, ELIZABETH NP Mar 26, 2024 11:13
[2024-03-26] MEDS ORDERED: SIMETHICONE 80 MG TAB.CHEW PO PRN (11:30)
[2024-03-26] MEDS: acetaMINOPHEN 100 ML ONE (13:18)
[2024-03-26] MEDS ORDERED: MIDAZOLAM HCL 1 MG/ML 2ML VIAL ONE (13:20)
[2024-03-26] MEDS ORDERED: ondanSETRON 4MG INJ ONE (13:20)
[2024-03-26] MEDS ORDERED: NEOSTIGMINE METHYLSULFATE 1MG/ML IV ONE (13:21)
[2024-03-26] MEDS ORDERED: FENTanyl CITRate PF 50 MCG/1 ML 2ML VIAL ONE (13:21)
[2024-03-26] MEDS ORDERED: GLYCOPYRROLATE 0.2 MG/ML 5 ML VIAL ONE (13:21)
[2024-03-26] MEDS ORDERED: rocuRONium bROMide 10MG/1ML 5ML VL ONE (13:21)
[2024-03-26] MEDS ORDERED: proPOFol 10 MG/ML 20ML VIAL IV ONE (13:21)
[2024-03-26] MEDS ORDERED: LIDOCAINE PF 100MG/5ML (2%) SYRINGE 5ML ONE (13:21)
--- NOTE | 2024-03-26 14:46 | OP ---
Operative Note: DATE OF PROCEDURE: 03/26/24 SURGEON: DELBERT LUGO MD CUTTER APPRENTICE HAND: [] ANESTHESIA: [] General ANESTHESIOLOGIST/LOADING CHECKER: [] PREOPERATIVE DIAGNOSIS: [] Acute cholecystitis POSTOPERATIVE DIAGNOSIS: [] The same SYNOPSIS: [] PROCEDURE: [] Laparoscopic cholecystectomy ESTIMATED BLOOD LOSS: [] Minimal INDICATIONS: [] DESCRIPTION OF PROCEDURE: [] With the patient prepped in the usual fashion a supraumbilical incision was additionally directed to meet with placement of the trocar and abdomen insufflated. Three 5 mm trochars were placed in the right upper quadrant under direct vision. The gallbladder was exposed adhesions were taken down and I dissected triangle of Calot. The cystic duct was clearly identified was triple clipped and divided and the cystic artery was double clipped and divided. I took the gallbladder from the liver using cautery dissection and after removed from the liver bed I placed an in a bag. I cauterized the liver bed and I placed 40 cc of Marcaine 0.25% in the side of the abdomen as an abdominal tap block under direct vision. And after adequate hemostasis and irrigation I removed all the trochars under direct vision and the gallbladder was removed from the supraumbilical incision. After removing the gallbladder I placed interrupted [id number] 0 Vicryl's and the fascia. All incisions were closed with 4-0 Monocryl and Steri-Strips. Patient was stable at the end of the procedure DELBERT LUGO MD Mar 26, 2024 14:46
[2024-03-26] MEDS: MEPERIDINE-PF 25 MG/ML SYG ONE (15:30)
[2024-03-26] MEDS: LACTATED RINGERS 1000ML 1,000 ML IV ONE (16:43)
[2024-03-26] MEDS: acetaMINOPHEN WITH coDEINE 1 TAB TAB PO PRN (17:13)
--- NOTE | 2024-03-26 17:30 | NUR ---
Discharge Planning: Pt. states she lives with her spouse Skyler Irvin. Contact number is for her mother Jennifer Juares at . Pt. states she has no PCP and preferred pharmacy is [facility] [address]. Pt. states she is independent with all ADL's. Is employed at [employer]. [employer]. No home health, provider services, or DME. DCP is for home when stable. No d/c needs for now. Addendum: 03/26/24 at 1733 by ERNESTINA RON RN CM Amended: Links added.
[2024-03-26] MEDS ORDERED: PoTASSium chloRIDE 20MEQ/100ML 100 ML IV PRN (20:30)
[2024-03-26] MEDS ORDERED: PoTASSium chloRIDE 20MEQ ER 20 MEQ ERTAB PO PRN (20:30)
[2024-03-26] MEDS: PoTASSium chl 10% ELIXIR 20MEQ 20 MEQ/15 ML UDCUP PO PRN (21:27)
[2024-03-27] VITALS: BP 116/67; PULSE 61; RESP 18; TEMP 98.4
[2024-03-27 04:00] VITALS: BP 116/62; PULSE 65; RESP 18; TEMP 98.3
[2024-03-27 05:12] LABS: BASOPHILS # (AUTO) 0.01 K/uL (0.00-0.20); BASOPHILS % (AUTO) 0.1 % (0.0-5.0); HEMATOCRIT 34.5 % (36-48); IMMATURE GRANULOCYTE ABSOLUTE 0.04 K/uL (0-1); LYMPHOCYTES # (AUTO) 1.2 K/uL (1.0-4.8); MEAN CORPUSCULAR HEMOGLOBIN 30.1 pg (27.0-33.0); MEAN CORPUSCULAR HGB CONC 34.5 g/dL (32.0-36.0); MEAN CORPUSCULAR VOLUME 87.3 fL (79-99); MONOCYTES # (AUTO) 0.6 K/uL (0.1-1.0); MONOCYTES % (AUTO) 5.6 % (3.0-13.0); NEUTROPHILS # (AUTO) 8.3 K/uL (1.8-7.7); NEUTROPHILS % (AUTO) 81.9 % (40.0-77.0); PLATELET COUNT (AUTO) 284 K/uL (130-400); RED BLOOD CELL COUNT(AUTO) 3.95 MIL/uL (4.00-5.50); WHITE BLOOD COUNT (AUTO) 10.1 K/uL (4.8-10.8)
[2024-03-27 05:27] LABS: ALBUMIN 3.4 g/dL (3.5-5.0); BILIRUBIN,TOTAL 0.7 mg/dL (0.2-1.0); CREATININE 0.5 mg/dL (0.5-1.0); MAGNESIUM 1.7 mg/dL (1.80-2.40); POTASSIUM 3.8 mmol/L (3.5-5.1); TOTAL PROTEIN, SERUM 6.8 g/dL (6.0-8.3)
[2024-03-27] MEDS: MAGNESIUM 2GM PREMIX 50ML 50 ML IV PRN (06:29)
[2024-03-27 08:00] VITALS: O2SAT 96
[2024-03-27 08:03] VITALS: BP 113/64; PULSE 63; RESP 17; TEMP 98.4
--- NOTE | 2024-03-27 08:53 | DS ---
Discharge Summary Hospital Course Summary: admission date: 03/25/24 PCP: self referral chief complaints: abd pain epigastric region This is a 33-year-old male that presents in ED with chief complaints of abdominal pain. onset: one week; location epigastric region, pain come in wave however last night was consistent: does not radiate, aggravating factors: none, alleviating factors: none: associated symptoms: chill, night sweats, nauseated and diarrhea. Denies chest pain back pain, flank pain. Patient reports having similar symptoms in the past: was seen in ER [facility] [place]. Imaging; CT abd/pelvis Fluid-filled loops of small bowel suggesting enteritis in the proper clinical setting. No bowel obstruction is seen. 2. Mildly distended gallbladder with gallstones and questionable wall thickening. Correlate with ultrasound. US Abd: Mildly distended gallbladder with gallstones, trace of pericholecystic fluid and mild gallbladder wall thickening which may may represent acute cholecystitis in the proper clinical setting. Patient underwent lap elise on 03/26/2024 status post day one recuperating tolerating diet no vomiting bowel sounds positive. Patient is clinically for discharged we will follow-up with surgeon in one-week. Procedure(s): Operative Note: DATE OF PROCEDURE: 03/26/24 SURGEON: DELBERT LUGO MD BURIAL VAULT MAKER: [] ANESTHESIA: [] General ANESTHESIOLOGIST/MANAGER POLICY: [] PREOPERATIVE DIAGNOSIS: [] Acute cholecystitis POSTOPERATIVE DIAGNOSIS: [] The same SYNOPSIS: [] PROCEDURE: [] Laparoscopic cholecystectomy ESTIMATED BLOOD LOSS: [] Minimal INDICATIONS: [] DESCRIPTION OF PROCEDURE: [] With the patient prepped in the usual fashion a supraumbilical incision was additionally directed to meet with placement of the trocar and abdomen insufflated. Three 5 mm trochars were placed in the right upper quadrant under direct vision. The gallbladder was exposed adhesions were taken down and I dissected triangle of Calot. The cystic duct was clearly identified was triple clipped and divided and the cystic artery was double clipped and divided. I took the gallbladder from the liver using cautery dissection and after removed from the liver bed I placed an in a bag. I cauterized the liver bed and I placed 40 cc of Marcaine 0.25% in the side of the abdomen as an abdominal tap block under direct vision. And after adequate hemostasis and irrigation I removed all the trochars under direct vision and the gallbladder was removed from the supraumbilical incision. After removing the gallbladder I placed interrupted [id number] 0 Vicryl's and the fascia. All incisions were closed with 4-0 Monocryl and Steri-Strips. Patient was stable at the end of the procedure DELBERT LUGO MD Mar 26, 2024 14:46 Electronically Signed by: DELBERT LUGO MD03/26/24 1446 Electronically Co-Signed by: Assessment/Plan: discharged dx's; acute cholecystitis POA s/p lap elise intractable abd pain POA resolved Mildly distended GB iwth gallstones: wall thickening allergy to PCN PLAN: ADMISSION DATE: 03/25/24 DISCHARGE DATE: 03/27/24 DISPOSITION: Home CONDITION: stable SOFTWARE QUALITY SPECIALIST(S): general surgeon: Dr Lugo FOLLOW UP APPOINTMENT(S): DR Lugo one wk PROCEDURES: Lap elise IMAGING (S) report attached to summary : HIDA, US abd CT pelvis and abd MICROBIOLOGY: report attached to summary; ACTIVITY: ab randy diet: GI soft diet avoid greasy food. HOME MEDICATIONS none profile CHANGES ON HOME MEDICATIONS; none NEW MEDICATIONS: advice to take OTC: Tylenol for pain TEACHING: No heavy lifting greater than 10 lb for four weeks. Keep incisions clean and dry wash with soap and water. Emergency instructions: The patient was instructed to present to the nearest Emergency Department or call 911 should their symptoms return or worsen. Time spent arranging discharge: 31-60 minutes ATTESTATION BY PHYSICIAN I have seen and examined the patient. I reviewed the documentation, medical decision making, and treatment plan as noted by the mid-level provider above. I agree with the findings and plan of care. DELTA AMAYA MD, ELIZABETH NP Mar 27, 2024 08:53
[2024-03-27 11:33] VITALS: BP 105/66; PULSE 63; RESP 17; TEMP 98.4
[2024-03-27] MEDS: SIMETHICONE 80 MG TAB.CHEW PO SCH (11:36)
== END 2024-03-27 15:54 | disposition home or self-care (01) | DRG 419 ==
LOC: EDH 10:07 → EDHIP 14:51 → 3AH 17:34
PROVIDERS: ADMIT Internal Medicine; ATTEND Internal Medicine
PROC: 0FT44ZZ Resection of Gallbladder, Percutaneous Endoscopic Approach (ICD-10-PCS; principal; 2024-03-26 13:55)
DX: K80.00 Calculus of gallbladder with acute cholecystitis without obstruction (principal); K82.8 Other specified diseases of gallbladder; Z88.0 Allergy status to penicillin
CPT/HCPCS: 36415; 74177; 76705; 78226; 80053; 81001; 81025; 83690; 83735; 85025; 86140; 99285; A9537; G0378; J1885; J1956; J2003; J2175; J2250; J2405; J2704; J2710; J3010; J3475; J3490; J7030; J7120; Q9967; A4216; A4222; A4223; A4600; A4649; C1769; J0665